=== PATIENT | female | born 1975 | race Caucasian/White ===

== ENCOUNTER 2020-12-08 09:48 | Outpatient (CLI) | payer BC ==
[2020-12-08 10:57] LABS: Bilirubin Neg (Negative); Blood, Urine Negative (Negative); Clarity Clear (Clear); Glucose, Urine (Dipstick) Normal (Negative); Ketone, Urine Negative (Negative); Leukocyte Negative (Negative); Nitrite Negative (Negative); Protein, Urine (Dipstick) Negative (Neg-Trace); Urobilinogen Normal mg/dL (Less than 2)
[2020-12-08 11:04] LABS: Platelet Count 106 10x3/uL (150-450)
[2020-12-08 11:05] LABS: Hemoglobin 15.9 g/dL (12.0-15.5); Mean Corpuscular Hemoglobin 34.5 pg (27.0-33.0); Mean Corpuscular Volume 98.5 fl (81.6-98.3); Mean Platelet Volume 11.7 fl (7.4-10.4); RBC Distribution Width 12.3 % (11.5-14.5); Red Blood Cell (RBC) Count 4.61 10x6/uL (3.90-5.03); White Blood Cell (WBC) Count 3.3 10x3/uL (3.5-10.5)
[2020-12-08 11:11] LABS: BHCG - Serum Negative (NEGATIVE); Pregs Control Background? CLEAR/WHITE (CLR/WHITE); Pregs Control Bar Appear? YES (CONTROL BAR)
[2020-12-08 11:38] LABS: Bacteria/HPF 2+ HPF (None Seen); RBC/HPF 0-3 HPF (0-3); Squamous Epithelial 0-3 HPF (0-3); WBC/HPF 0-3 HPF (0-3)
[2020-12-08 21:48] LABS: SARS-CoV-2 PCR by NAA Not Detected (NotDetected)
== END 2020-12-08 09:49 | disposition home or self-care (01) ==
LOC: CSHLAB 09:48
PROVIDERS: ATTEND Obstetrics & Gynecology
DX: Z01.812 Encounter for preprocedural laboratory examination (principal); Z20.822 Contact with and (suspected) exposure to COVID-19; N93.9 Abnormal uterine and vaginal bleeding, unspecified; N92.0 Excessive and frequent menstruation with regular cycle; N80.0 Endometriosis of uterus
CPT/HCPCS: 81001; 84703; 85027; 87635; U0003; U0005

== ENCOUNTER 2020-12-11 07:22 | Day surgery (SDC) | payer BC ==
[2020-12-10 14:29] VITALS: BMI 27.3
[~2020-12-11 07:22] MED LIST: Bupivacaine PF 0.5% 30 ML VIAL ONE; EPINEPHrine 1 MG/ML AMP ONE
[2020-12-11] MEDS ORDERED: Acetaminophen 500 MG TAB ONE (08:24)
[2020-12-11] MEDS ORDERED: Lidocaine 1% MPF 2 ML VIAL ONE (08:24)
[2020-12-11] MEDS ORDERED: Fentanyl 100 MCG/2 ML VIAL ONE ×3 (08:47→11:58)
[2020-12-11] MEDS ORDERED: Rocuronium Bromide 10 MG/ML (10ML VIAL) ONE (08:47)
[2020-12-11] MEDS ORDERED: Lidocaine 1% PF 5 ML VIAL ONE (08:47)
[2020-12-11] MEDS ORDERED: PROPOFOL 20 ML ONE (08:47)
[2020-12-11] MEDS ORDERED: Lidocaine 2% Jelly 5 ML TUBE ONE (08:50)
[2020-12-11] MEDS ORDERED: ePHEDrine 50 MG/ML VIAL ONE (09:39)
[2020-12-11] MEDS ORDERED: Dexamethasone 20 MG/5 ML VIAL ONE (09:44)
[2020-12-11] MEDS ORDERED: Glycopyrrolate 0.2 MG/ML 5 ML SYRINGE ONE (09:59)
[2020-12-11] MEDS ORDERED: Ondansetron PF 4 MG/2 ML Vial ONE (11:03)
[2020-12-11] MEDS ORDERED: Ketorolac Tromethamine 15 MG/ML VIAL ONE (11:03)
[2020-12-11] MEDS ORDERED: Lactated Ringer's 1,000 ML IV SCH (13:03)
[2020-12-11] MEDS ORDERED: diphenhydrAMINE 25 MG CAP PO PRN (13:03)
[2020-12-11] MEDS ORDERED: HYDROcodone/Acetaminophen 10/325 mg Tablet PO PRN (13:03)
[2020-12-11] MEDS ORDERED: Acetaminophen 500 MG TAB PO PRN (13:03)
[2020-12-11] MEDS ORDERED: Morphine 2 MG/ML VIAL SLOW IVP PRN (13:03)
[2020-12-11] MEDS ORDERED: Simethicone Chewable 80 MG TAB PO PRN (13:03)
[2020-12-11] MEDS ORDERED: Ondansetron PF 4 MG/2 ML Vial IVP PRN (13:03)
[2020-12-11] MEDS ORDERED: Ketorolac Tromethamine 30 MG/ML VIAL IVP SCH (13:03)
[2020-12-11] MEDS ORDERED: HYDROcodone/Acetaminophen 10/325 mg Tablet ONE (13:08)
[2020-12-11] MEDS ORDERED: Morphine 2 MG/ML VIAL ONE (13:53)
[2020-12-11 16:53] LABS: Hemoglobin 14.6 g/dL (12.0-15.5)
== END 2020-12-11 17:45 | disposition home or self-care (01) ==
LOC: CSHSDC 07:22
PROVIDERS: ATTEND Obstetrics & Gynecology
PROC: 0UT74ZZ Resection of Bilateral Fallopian Tubes, Percutaneous Endoscopic Approach (ICD-10-PCS; principal; 2020-12-11)
PROC: 0UT94ZZ Resection of Uterus, Percutaneous Endoscopic Approach (ICD-10-PCS; principal; 2020-12-11)
DX: D25.9 Leiomyoma of uterus, unspecified (principal); N80.0 Endometriosis of uterus; N87.9 Dysplasia of cervix uteri, unspecified; N72 Inflammatory disease of cervix uteri; N84.0 Polyp of corpus uteri; E03.9 Hypothyroidism, unspecified; Z79.899 Other long term (current) drug therapy
CPT/HCPCS: 36415; 85014; 85018; 88307; J0171; J0690; J1100; J1885; J2270; J2405; J2704; J3010; J3490; Q0163; S0020